=== PATIENT | male | born 1985 | race Hispanic/Latino ===

== ENCOUNTER 2021-03-05 09:12 | Emergency (ER) | payer SELFPAY ==
[2021-03-05] MEDS ORDERED: METOCLOPRAMIDE 10 MG/2 ML INJ IV ONE (09:37)
[2021-03-05] MEDS ORDERED: diphenhydrAMINE 50 MG/ML VIAL IV ONE (09:37)
[2021-03-05] MEDS ORDERED: DICYCLOMINE 20 MG TAB PO ONE (09:37)
[2021-03-05] MEDS ORDERED: SODIUM CHLORIDE 0.9% 1000 ML 1,000 ML IV ONE (09:37)
--- NOTE | 2021-03-05 10:31 | Emergency Department Report ---
ED Abdominal Pain HPI - General Chief Complaint: Abdominal Pain Stated Complaint: KIDNEY PAIN Time Seen by Provider: 03/05/21 09:33 Source: patient Mode of arrival: Ambulatory Limitations: No Limitations - History of Present Illness Initial Comments: This is a 35-year-old male nontoxic, well nourished in appearance, no acute signs of distress presents to the ED with c/o of nausea and abdominal pain several days. Stated has radiation to right flank area. Patient denies any vomiting. Patient stated he is on ciprofloxacin as he was diagnosed with UTI in urgent care several days ago. Patient describes abdominal pain as cramping and aching with level of 8/10 diffuse but worse in the RUQ area. Patient denies chest pain, short of breath, fever, hemoptysis, blood in stool, chills, headache, stiff neck, numbness or tingling. Patient denies any diarrhea or constipation. Denies any blood in stool. Patient denies any recent travels. Patient denies any allergies or significant PMH. MD Complaint: abdominal pain -: days(s) Location: diffuse, RUQ (worse) Radiation: none Migration to: no migration Severity: mild Severity scale (0 -10): 8 Quality: aching Consistency: constant Improves With: nothing Worsens With: nothing Associated Symptoms: nausea. denies: vomiting, diarrhea, fever, chills, constipation, dysuria, hematemesis, hematochezia, melena, hematuria, anorexia, syncope - Related Data Previous Rx's Medication Instructions Recorded Last Taken Type Ondansetron [Zofran Odt] 4 mg PO Q12H PRN #12 tab.rapdis 03/05/21 Unknown Rx Allergies Allergy/AdvReac Type Severity Reaction Status Date / Time No Known Allergies Allergy Unverified 03/05/21 09:23 ED Review of Systems ROS: Stated complaint: KIDNEY PAIN Other details as noted in HPI Comment: All other systems reviewed and negative Constitutional: denies: chills, fever Eyes: denies: eye pain, eye discharge, vision change ENT: denies: ear pain, throat pain Respiratory: denies: cough, shortness of breath, wheezing Cardiovascular: denies: chest pain, palpitations Endocrine: no symptoms reported Gastrointestinal: abdominal pain, nausea. denies: vomiting, diarrhea, constipation, hematemesis, melena, hematochezia Genitourinary: denies: urgency, dysuria Musculoskeletal: denies: back pain, joint swelling, arthralgia Skin: denies: rash, lesions Neurological: denies: headache, weakness, paresthesias Psychiatric: denies: anxiety, depression Hematological/Lymphatic: denies: easy bleeding, easy bruising ED Past Medical Hx - Past Medical History Previous Medical History?: No - Surgical History Past Surgical History?: No - Medications Home Medications: Home Medications Medication Instructions Recorded Confirmed Last Taken Type Ondansetron [Zofran Odt] 4 mg PO Q12H PRN #12 tab.rapdis 03/05/21 Unknown Rx ED Physical Exam - General Limitations: No Limitations General appearance: alert, in no apparent distress - Head Head exam: Present: atraumatic, normocephalic - Eye Eye exam: Present: normal appearance - Neck Neck exam: Present: normal inspection, full ROM. Absent: lymphadenopathy - Respiratory Respiratory exam: Present: normal lung sounds bilaterally. Absent: respiratory distress, wheezes, rales, rhonchi, stridor, chest wall tenderness, accessory muscle use, decreased breath sounds, prolonged expiratory - Cardiovascular Cardiovascular Exam: Present: regular rate, normal rhythm, normal heart sounds. Absent: irregular rhythm, systolic murmur, diastolic murmur, rubs, gallop - GI/Abdominal GI/Abdominal exam: Present: soft, tenderness (RUQ), normal bowel sounds. Absent: distended, guarding, rebound, rigid, diminished bowel sounds - Extremities Exam Extremities exam: Present: normal inspection, full ROM. Absent: tenderness - Back Exam Back exam: Present: normal inspection, full ROM. Absent: tenderness, CVA tenderness (R), CVA tenderness (L), muscle spasm, paraspinal tenderness, vertebral tenderness, rash noted - Neurological Exam Neurological exam: Present: alert, oriented X3, normal gait - Psychiatric Psychiatric exam: Present: normal affect, normal mood - Skin Skin exam: Present: warm, dry, intact, normal color. Absent: rash ED Course Vital Signs 03/05/21 09:15 Temperature 97.8 F Pulse Rate 100 H Respiratory 16 Rate Blood Pressure 145/105 O2 Sat by Pulse 99 Oximetry - Reevaluation(s) Reevaluation #1: 03/05/21 10:31 Patient is speaking in full sentences with no signs of distress noted. ED Medical Decision Making - Lab Data Result diagrams: 03/05/21 09:37 03/05/21 12:05 Lab Results 03/05/21 03/05/21 03/05/21 Range/Units 09:37 09:37 Unknown WBC 15.7 H (4.5-11.0) K/mm3 RBC 4.92 (3.65-5.03) M/mm3 Hgb 17.6 H (11.8-15.2) gm/dl Hct 48.2 H (35.5-45.6) % MCV 98 H (84-94) fl MCH 36 H (28-32) pg MCHC 37 H (32-34) % RDW 12.9 L (13.2-15.2) % Plt Count 324 (140-440) K/mm3 Lymph % (Auto) 8.0 L (13.4-35.0) % Hart % (Auto) 5.8 (0.0-7.3) % Eos % (Auto) 1.1 (0.0-4.3) % Baso % (Auto) 0.3 (0.0-1.8) % Lymph # (Auto) 1.3 (1.2-5.4) K/mm3 Hart # (Auto) 0.9 H (0.0-0.8) K/mm3 Eos # (Auto) 0.2 (0.0-0.4) K/mm3 Baso # (Auto) 0.0 (0.0-0.1) K/mm3 Seg Neutrophils % 84.8 H (40.0-70.0) % Seg Neutrophils # 13.3 H (1.8-7.7) K/mm3 Sodium TNR Potassium TNR Chloride TNR Carbon Dioxide TNR Anion Gap TNR BUN TNR Creatinine TNR Estimated GFR TNR BUN/Creatinine Ratio TNR Glucose TNR Calcium TNR Total Bilirubin TNR AST TNR ALT TNR Alkaline Phosphatase 79 (35-129) units/L Total Protein TNR Albumin TNR Albumin/Globulin Ratio TNR Lipase 36 (13-60) units/L Urine Color Yellow (Yellow) Urine Turbidity Clear (Clear) Urine pH 5.0 (5.0-7.0) Ur Specific [place] 1.018 (1.003-1.030) Urine Protein 30 mg/dl (Negative) mg/dL Urine Glucose (UA) Neg (Negative) mg/dL Urine Ketones Neg (Negative) mg/dL Urine Blood Neg (Negative) Urine Nitrite Neg (Negative) Urine Bilirubin Neg (Negative) Urine Urobilinogen 2.0 (<2.0) mg/dL Ur Leukocyte Esterase Neg (Negative) Urine WBC (Auto) 6.0 (0.0-6.0) /HPF Urine RBC (Auto) 2.0 (0.0-6.0) /HPF Urine Mucus 1+ /HPF Lab Results 03/05/21 03/05/21 03/05/21 Range/Units 09:37 09:37 12:05 WBC 15.7 H (4.5-11.0) K/mm3 RBC 4.92 (3.65-5.03) M/mm3 Hgb 17.6 H (11.8-15.2) gm/dl Hct 48.2 H (35.5-45.6) % MCV 98 H (84-94) fl MCH 36 H (28-32) pg MCHC 37 H (32-34) % RDW 12.9 L (13.2-15.2) % Plt Count 324 (140-440) K/mm3 Lymph % (Auto) 8.0 L (13.4-35.0) % Hart % (Auto) 5.8 (0.0-7.3) % Eos % (Auto) 1.1 (0.0-4.3) % Baso % (Auto) 0.3 (0.0-1.8) % Lymph # (Auto) 1.3 (1.2-5.4) K/mm3 Hart # (Auto) 0.9 H (0.0-0.8) K/mm3 Eos # (Auto) 0.2 (0.0-0.4) K/mm3 Baso # (Auto) 0.0 (0.0-0.1) K/mm3 Seg Neutrophils % 84.8 H (40.0-70.0) % Seg Neutrophils # 13.3 H (1.8-7.7) K/mm3 Sodium TNR 138 Potassium TNR 3.8 Chloride TNR 103.2 Carbon Dioxide TNR 21 L Anion Gap TNR 18 BUN TNR 9 Creatinine TNR 0.8 Estimated GFR TNR > 60 BUN/Creatinine Ratio TNR 11 Glucose TNR 101 H Calcium TNR 9.1 Total Bilirubin TNR 0.80 AST TNR 24 ALT TNR 25 Alkaline Phosphatase 79 112 (35-129) units/L Total Protein TNR 7.7 Albumin TNR 4.8 Albumin/Globulin Ratio TNR 1.7 Lipase 36 (13-60) units/L Urine Color (Yellow) Urine Turbidity (Clear) Urine pH (5.0-7.0) Ur Specific [place] (1.003-1.030) Urine Protein (Negative) mg/dL Urine Glucose (UA) (Negative) mg/dL Urine Ketones (Negative) mg/dL Urine Blood (Negative) Urine Nitrite (Negative) Urine Bilirubin (Negative) Urine Urobilinogen (<2.0) mg/dL Ur Leukocyte Esterase (Negative) Urine WBC (Auto) (0.0-6.0) /HPF Urine RBC (Auto) (0.0-6.0) /HPF Urine Mucus /HPF 03/05/21 Range/Units Unknown WBC (4.5-11.0) K/mm3 RBC (3.65-5.03) M/mm3 Hgb (11.8-15.2) gm/dl Hct (35.5-45.6) % MCV (84-94) fl MCH (28-32) pg MCHC (32-34) % RDW (13.2-15.2) % Plt Count (140-440) K/mm3 Lymph % (Auto) (13.4-35.0) % Hart % (Auto) (0.0-7.3) % Eos % (Auto) (0.0-4.3) % Baso % (Auto) (0.0-1.8) % Lymph # (Auto) (1.2-5.4) K/mm3 Hart # (Auto) (0.0-0.8) K/mm3 Eos # (Auto) (0.0-0.4) K/mm3 Baso # (Auto) (0.0-0.1) K/mm3 Seg Neutrophils % (40.0-70.0) % Seg Neutrophils # (1.8-7.7) K/mm3 Sodium Potassium Chloride Carbon Dioxide Anion Gap BUN Creatinine Estimated GFR BUN/Creatinine Ratio Glucose Calcium Total Bilirubin AST ALT Alkaline Phosphatase (35-129) units/L Total Protein Albumin Albumin/Globulin Ratio Lipase (13-60) units/L Urine Color Yellow (Yellow) Urine Turbidity Clear (Clear) Urine pH 5.0 (5.0-7.0) Ur Specific [place] 1.018 (1.003-1.030) Urine Protein 30 mg/dl (Negative) mg/dL Urine Glucose (UA) Neg (Negative) mg/dL Urine Ketones Neg (Negative) mg/dL Urine Blood Neg (Negative) Urine Nitrite Neg (Negative) Urine Bilirubin Neg (Negative) Urine Urobilinogen 2.0 (<2.0) mg/dL Ur Leukocyte Esterase Neg (Negative) Urine WBC (Auto) 6.0 (0.0-6.0) /HPF Urine RBC (Auto) 2.0 (0.0-6.0) /HPF Urine Mucus 1+ /HPF - Radiology Data [facility] [address] [place] [address] Cat Scan Report Signed Patient: HERNANDEZ HERNANDEZ MR#: [id number] : 1985 Acct:[id number] Age/Sex: 35 / M ADM Date: 03/05/21 Loc: ED Attending Dr: Kamaljit vizcarra Physician: ROSSY RAMIRES NP Date of Service: 03/05/21 Procedure(s): CT abdomen pelvis w con Accession Number(s): [id number] cc: ROSSY RAMIRES NP CT ABDOMEN AND PELVIS WITH IV CONTRAST INDICATION: abd/flank pain with nausea 100 ML OMNI 300 . COMPARISON: None available. TECHNIQUE: Axial CT images were obtained through the abdomen and pelvis after 100 mL IV contrast. All CT scans at this location are performed using CT dose reduction for ALARA by means of automated exposure control. FINDINGS -- ABDOMEN: Lung Bases: No acute abnormality. Liver: Normal. Gallbladder: Normal. Bile Ducts: Normal. Pancreas: Normal. Spleen: Normal. Adrenals: Normal. Right Kidney and Proximal Ureter: Mild pelvocaliectasis. Left Kidney and Proximal Ureter: Normal. Stomach and Bowel: The stomach mucosa as well as the small bowel mucosa appears somewhat prominent.. Lymph Nodes: No significant adenopathy. Aorta: No significant abnormality. IVC: Normal. Additional Findings: None. FINDINGS -- PELVIS: Urinary Bladder and Distal Ureters: Normal. Reproductive Organs: No acute abnormality. Appendix: Normal. Bowel: No acute abnormality. Free Fluid: None. Lymph Nodes: No significant adenopathy. Additional Findings: None. Skeletal System: No acute abnormality. IMPRESSION: Findings consistent with gastroenteritis. Mild pelvocaliectasis of the right kidney without evidence of obstructive right ureteral lesion. Of note, the urinary bladder is fluid distended. Signer Name: Lonnie Kidd MD Signed: 03/05/2021 11:40 AM Workstation Name: [id number] Transcribed By: BC Dictated By: Lonnie Kidd MD Electronically Authenticated By: Lonnie Kidd MD Signed Date/Time: 03/05/21 1140 DD/ 1133 TD/TT: Critical care attestation.: If time is entered above; I have spent that time in minutes in the direct care of this critically ill patient, excluding procedure time. ED Disposition Clinical Impression: Pelvicaliectasis, Flank pain Abdominal pain Qualifiers: Abdominal location: right upper quadrant Qualified Code(s): R10.11 - Right upper quadrant pain Disposition: 01 HOME / SELF CARE / HOMELESS Is pt being admited?: No Does the pt Need Aspirin: No Condition: Stable Additional Instructions: Follow-up with a primary care and marketing director assisted living doctor in 3-5 days or if symptoms worsen and continue return to emergency room as soon as possible. Prescriptions: Ondansetron [Zofran Odt] 4 mg PO Q12H PRN #12 tab.rapdis PRN Reason: Nausea Referrals: PRIMARY CAREMD [Primary Care Provider] - 3-5 Days CAMMIE FORREST MD [Staff Physician] - 3-5 Days BHARGAVI HUTCHINSON MD [Staff Physician] - 3-5 Days Forms: Work/School Release Form(ED) Time of Disposition: 13:24
[2021-03-05 10:41] LABS: Basophils % (Auto) 0.3 % (0.0-1.8); Eosinophils # (Auto) 0.2 K/mm3 (0.0-0.4); Eosinophils % (Auto) 1.1 % (0.0-4.3); Hemolysis Index 1361; Lymphocytes # (Auto) 1.3 K/mm3 (1.2-5.4); Mean Corpuscular HGB Conc 37 % (32-34); Mean Corpuscular Volume 98 fl (84-94); Monocytes # (Auto) 0.9 K/mm3 (0.0-0.8); Monocytes % (Auto) 5.8 % (0.0-7.3); Platelet Count 324 K/mm3 (140-440); Red Blood Count 4.92 M/mm3 (3.65-5.03); Red Cell Distribution Width 12.9 % (13.2-15.2)
[2021-03-05 10:45] LABS: Hematocrit 48.2 % (35.5-45.6); Hemoglobin 17.6 gm/dl (11.8-15.2)
[2021-03-05 10:46] LABS: Bilirubin,Urine NEG (Negative); Blood,Urine NEG (Negative); Color,Urine Yellow (Yellow); Mucus,Urine 1+ /HPF
[2021-03-05 10:55] LABS: BUN/Creatinine Ratio TNR; Blood Urea Nitrogen TNR mg/dL (9-20)
[2021-03-05 10:56] LABS: Alanine Aminotransferase TNR units/L (7-56); Albumin TNR g/dL (3.9-5); Calcium TNR mg/dL (8.4-10.2)
--- NOTE | 2021-03-05 11:45 | Cat Scan Report ---
CT ABDOMEN AND PELVIS WITH IV CONTRAST INDICATION: abd/flank pain with nausea 100 ML OMNI 300 . COMPARISON: None available. TECHNIQUE: Axial CT images were obtained through the abdomen and pelvis after 100 mL IV contrast. All CT scans a t this location are performed using CT dose reduction for ALARA by means of automated exposure contro l. FINDINGS -- ABDOMEN: Lung Bases: No acute abnormality. Liver: Normal. Gallbladder: Normal. Bile Ducts: Normal. Pancreas: Normal. Spleen: Normal. Adrenals: Normal. Right Kidney and Proximal Ureter: Mild pelvocaliectasis. Left Kidney and Proximal Ureter: Normal. Stomach and Bowel: The stomach mucosa as well as the small bowel mucosa appears somewhat prominent.. Lymph Nodes: No significant adenopathy. Aorta: No significant abnormality. IVC: Normal. Additional Findings: None. FINDINGS -- PELVIS: Urinary Bladder and Distal Ureters: Normal. Reproductive Organs: No acute abnormality. Appendix: Normal. Bowel: No acute abnormality. Free Fluid: None. Lymph Nodes: No significant adenopathy. Additional Findings: None. Skeletal System: No acute abnormality. IMPRESSION: Findings consistent with gastroenteritis. Mild pelvocaliectasis of the right kidney without evidence of obstructive right ureteral lesion. Of note, the urinary bladder is fluid distended. Signer Name: Lnonie Kidd MD Signed: 03/05/2021 11:40 AM Workstation Name: [id number]
[2021-03-05 13:05] LABS: Alanine Aminotransferase 25 units/L (7-56); Albumin 4.8 g/dL (3.9-5); BUN/Creatinine Ratio 11; Blood Urea Nitrogen 9 mg/dL (9-20); Calcium 9.1 mg/dL (8.4-10.2)
[2021-03-05 13:43] VITALS: BP 140/89
== END 2021-03-05 13:36 | disposition home or self-care (01) ==
LOC: ED 09:12
DX: N28.89 Other specified disorders of kidney and ureter (principal); R10.11 Right upper quadrant pain
CPT/HCPCS: 36415; 74177; 80053; 81001; 83690; 85025; 96361; 96374; 96375; 99284; J1200; J2765; J7030; Q9967